=== PATIENT | male | born 1960 | race African-American/Black ===

== ENCOUNTER → 2020-04-11 | Day surgery (SDC) | payer MEDICARE ==
[~2020-04-11] MED LIST: ACIDOPHILUS1 EAC4 PEG; ALBUTEROL0.63 MG/3 INH; ASPIRIN81 MG PO; BISACODYL5 MG PO; BISACODYL5 MG RC; CARVEDILOL3.125 MG PO; COLLAGENASE1 EACH TOP; DEXTROSE 5% 250ML 250 ML IV ONE; FENTANYL CITRATE/PF 100MCG/2 ML INJ ONE; GENTAMICIN OINTMENT TP; GLUCAGON FOR INJ 1 MG VIAL ONE; HYOSCYAMINE 0.125 MG TAB ONE; LIPITOR20 MG PO; LOPERAMIDE2 MG PO; MECLIZINE HCL12.5 MG PO; MIDAZOLAM HCL 2 MG/2 ML VIAL ONE; MIDODRINE HCL5 MG PO; MIRALAX17 GM PO; MULTIVITAMINS1 EAC7 PO; NITROSTAT0.4 MG SL; NORCO 5-325 TA1 EACH PO; PEPTO-BISM262 MG/15 PO; PLAVIX75 MG PO; PROPOFOL IV EMULSION 10 MG/ML 20 ML VIAL ONE; PROTONIX20 MG PO; RENVELA800 MG PO; SODIUM CHLORIDE 0.9% 500ML 500 ML ONE; TUMS200 MG PO; TUSSIN100 MG/51 PO; ULTRAM50 MG PO; VITAMIN C500 MG PO; ZOFRAN4 MG PO; [UNRECOGNIZED DRUG - OTHER] PO
[2020-04-11 11:50] VITALS: BP 107/76
--- NOTE | 2020-04-11 12:46 | Operative Report ---
DATE OF PROCEDURE: 04/11/2020 SURGEON: Seth Rodriguez MD PROCEDURES: EGD with biopsies and colonoscopy with biopsies. INDICATIONS FOR EGD: Acid reflux, bloating. INDICATIONS FOR COLONOSCOPY: Colorectal cancer screening, chronic diarrhea. MEDICATIONS: The patient was done under MAC, please see anesthesiologist's note. PROCEDURE IN DETAIL: With the patient in the left lateral decubitus position, a flexible fiberoptic Olympus gastroscope was introduced into the esophagus under direct visualization without any difficulty. There was some patchy erythema noted in distal esophagus. The scope was then advanced with ease into the stomach, mucosa overlying the antrum and the body revealed some patchy erythema and low-grade to moderate edema, and biopsies were obtained and sent to stain for H. pylori. A moderate amount of retained undigested food was noted in the proximal body along the greater curvature precluding visualization of that part of the stomach. Pylorus was intubated with ease and the scope was advanced all the way to the second portion of the duodenum. The scope was then withdrawn slowly and biopsies were obtained from the proximal second portion and the duodenal bulb to rule out sprue. The scope was then withdrawn back into the stomach and retroflexed, mucosa overlying the fundus and the cardia appeared to be within normal limits. The scope was then straightened out, it was subsequently withdrawn, and the patient tolerated the procedure well. IMPRESSION: 1. Distal esophagitis, mild. 2. Gastritis, biopsied, biopsies sent to stain for Helicobacter pylori. Moderate amount of retained undigested food stuff was noted in the proximal body of the stomach along the greater curvature precluding visualization of that part. 3. Rule out sprue. PLAN: Follow up histology. Continue Protonix 40 mg one p.o. q.a.m. before meals. The patient was then turned around and after adequate lubrication of the anal canal, the flexible fiberoptic Olympus colonoscope was inserted into the rectum with ease and advanced all the way to the cecum. The colon was excessively spastic and irritable, and visualization was suboptimal. Whatever was visualized the mucosa overlying the cecum appeared to be within normal limits. There was some diverticular disease noted in the ascending colon. The transverse, descending, sigmoid as well as the rectum grossly appeared to be within normal limits. Multiple random biopsies were obtained to rule out microscopic colitis. The scope was then retroflexed into the distal rectum and small internal hemorrhoids were noted, none of which was actively bleeding. The scope was then straightened out and it was subsequently withdrawn after securing an adequate stool specimen that was sent for the appropriate stool studies. The patient tolerated the procedure well. IMPRESSION: 1. Colon excessively spastic and irritable, suboptimally visualized. 2. Diverticulosis. 3. Rule out microscopic colitis. 4. Internal hemorrhoids, none actively bleeding. PLAN: Follow up histology. Follow up stool studies. Initiate Bentyl 20 mg one p.o. t.i.d. The patient might benefit from a followup colonoscopy in 5 to 10 years. Seth Rodriguez MD [facility] [place]PATI /[id number] cc: [facility]
[2020-04-11 13:48] LABS: WBC,FECAL (FECAL LACTOFERRIN) POSITIVE (NEGATIVE)
[2020-04-12 14:58] LABS: C DIFFICILE TOXIN A&B AMP PROB NEGATIVE (NEGATIVE)
== END | disposition home or self-care (01) ==
LOC: OR 07:03
PROVIDERS: ATTEND Internal Medicine Gastroenterology
DX: R19.7 Diarrhea, unspecified (principal); K29.70 Gastritis, unspecified, without bleeding; K58.9 Irritable bowel syndrome, unspecified; K21.9 Gastro-esophageal reflux disease without esophagitis; K20.90 Esophagitis, unspecified without bleeding; K57.30 Diverticulosis of large intestine without perforation or abscess without bleeding; K64.8 Other hemorrhoids; J44.9 Chronic obstructive pulmonary disease, unspecified; E78.5 Hyperlipidemia, unspecified; E11.22 Type 2 diabetes mellitus with diabetic chronic kidney disease; I13.2 Hypertensive heart and chronic kidney disease with heart failure and with stage 5 chronic kidney disease, or end stage renal disease; I50.9 Heart failure, unspecified; N18.6 End stage renal disease; Z91.041 Radiographic dye allergy status; Z99.2 Dependence on renal dialysis; Z79.82 Long term (current) use of aspirin; Z79.02 Long term (current) use of antithrombotics/antiplatelets
CPT/HCPCS: 36415; 43239; 45380; 82948; 83630; 83993; 84132; 87045; 87177; 87328; 87493; 88305; 88312; 93005; J1610; J2250; J2704; J3010; J7040; J7070; 45378